=== PATIENT | female | born 1945 | race Caucasian/White ===

== ENCOUNTER 2018-08-22 15:57 | Emergency (ER) | payer OTHER ==
--- NOTE | 2018-08-22 17:39 | RAD REPORT ---
EXAM DESCRIPTION: RAD - Ankle Left 3 View -08/22/2018 5:31 pm CLINICAL HISTORY: Left ankle pain status post injury FINDINGS: No fracture or dislocation is seen. The bones are osteoporotic
--- NOTE | 2018-08-22 17:42 | RAD REPORT ---
EXAM DESCRIPTION: RAD - Foot Left 3 View - 08/22/2018 5:34 pm CLINICAL HISTORY: Left Foot pain FINDINGS: Lucency is present within in the anterior superior aspect of the talus. This could either represent prominent trabecula or a nondisplaced fracture and should be correlated clinically. No dislocation noted Large calcaneal spur is present. Bones are osteoporotic
[2018-08-22] MEDS ORDERED: HYDROCODONE/APAP 7.5/325 MG TAB ONE (18:12)
--- NOTE | 2018-08-22 19:08 | EDPHYS ---
Physician Documentation [facility] Name: Nimo Galan Age: 73 yrs Sex: Female : 1945 Arrival Date: 08/22/2018 Time: 16:00 Bed 25 Private MD: Ramon Mckeon E ED Physician Albert Jarrett HPI: 08/22 16:23 This 73 yrs old Female presents to ER via Carried with complaints of Ankle cp Injury. 16:23 The patient presents with an injury, pain, that is acute, swelling, tenderness. The cp complaints affect the left ankle. Onset: The symptoms/episode began/occurred 5 day(s) ago. Context: resulted from a mis-step by the patient, hole in yard, The patient can fully bear weight on the affected extremity. the patient is able to ambulate, with moderate difficulty. Associated signs and symptoms: Pertinent negatives: calf tenderness, numbness. Historical: - Allergies: 16:11 Sulfa (Sulfonamide Antibiotics); aa5 - PMHx: 16:11 Hypertension; Breast Cancer; aa5 - PSHx: 16:11 Mastectomy, Left; aa5 - Immunization history:: Adult Immunizations up to date. - Social history:: Smoking status: Patient/guardian denies using tobacco. - Ebola Screening: : No symptoms or risks identified at this time. ROS: 16:27 Constitutional: Negative for body aches, chills, fever, poor PO intake. cp 16:27 Neck: Negative for pain with movement, pain at rest, stiffness. 16:27 Cardiovascular: Negative for chest pain, palpitations. 16:27 Respiratory: Negative for cough, shortness of breath, wheezing. 16:27 Abdomen/GI: Negative for abdominal pain, vomiting, diarrhea, constipation. 16:27 Back: Negative for pain at rest, pain with movement. 16:27 MS/extremity: Positive for ecchymosis, pain, swelling, tenderness, of the left ankle and left foot, Negative for deformity. 16:27 Neuro: Negative for numbness. 16:27 All other systems are negative. Exam: 16:35 Constitutional: The patient appears in no acute distress, alert, awake, non-toxic, well cp developed, well nourished. 16:35 Head/Face: Normocephalic, atraumatic. cp 16:35 Eyes: Periorbital structures: appear normal, Conjunctiva: normal, no exudate, no injection, Lids and lashes: appear normal, bilaterally. 16:35 ENT: External ear(s): are unremarkable, Nose: is normal, Mouth: is normal, Posterior pharynx: Airway: no evidence of obstruction, patent. 16:35 Chest/axilla: Inspection: normal. 16:35 Cardiovascular: Rate: normal, Pulses: Pulses are 2+ in left dorsalis pedis artery. 16:35 Respiratory: the patient does not display signs of respiratory distress, Respirations: normal, no use of accessory muscles, no retractions, no splinting, no tachypnea. 16:35 Abdomen/GI: Inspection: abdomen appears normal. 16:35 Back: pain, is absent, ROM is normal. 16:35 Musculoskeletal/extremity: Extremities: grossly normal except: noted in the left ankle and left foot: ecchymosis, pain, swelling, tenderness, Sensation intact. Achilles tendon intact, no pain noted at proximal fibula. 16:35 Skin: cellulitis, is not appreciated, no rash present. Vital Signs: 16:12 BP 126 / 58; Pulse 73; Resp 18 S; Temp 97.9(TE); Pulse Ox 98% on R/A; Weight 113.4 kg aa5 (R); Height 5 ft. 11 in. (180.34 cm) (R); Pain 0/10; 17:18 BP 128 / 56; Pulse 63; Resp 17; Pulse Ox 95% on R/A; tw2 18:21 BP 115 / 71; Pulse 84; Resp 17; Pulse Ox 100% on R/A; tw2 16:12 Body Mass Index 34.87 (113.40 kg, 180.34 cm) aa5 Procedures: 19:10 Splinting: Splint applied to left foot and left ankle using Orthoglass splint, cp posterior short leg and stirrup non-weight bearing. applied by tech. Examined by me, post splint application: neurovascular intact, Patient tolerated well. MDM: 16:17 Patient medically screened. cp 17:00 Differential diagnosis: fracture, sprain, dislocation. cp 19:05 Data reviewed: vital signs, nurses notes, radiologic studies, plain films, and as a cp result, I will discharge patient. 19:05 Test interpretation: by ED physician or midlevel provider: plain radiologic studies. cp Counseling: I had a detailed discussion with the patient and/or guardian regarding: the historical points, exam findings, and any diagnostic results supporting the discharge/admit diagnosis, radiology results, the need for outpatient follow up, for definitive care, a orthopedic surgeon, to return to the emergency department if symptoms worsen or persist or if there are any questions or concerns that arise at home. Response to treatment: the patient's symptoms have markedly improved after treatment, and as a result, I will discharge patient. 08/22 16:26 Order name: XRAY Ankle LEFT 3 view cp 08/22 16:26 Order name: XRAY Foot LEFT 3 View cp 08/22 17:40 Order name: RAD [facility] 08/22 17:43 Order name: RAD [facility] 08/22 17:56 Order name: Crutches; Complete Time: 18:21 cp 08/22 17:56 Order name: Splint: non-wt bearing posterior lower leg and stirrup; Complete Time: 18:21cp Administered Medications: 18:02 Drug: Hydrocodone-Acetaminophen (7.5 mg-325 mg) 1 tabs Route: PO; tw2 18:21 Follow up: Response: No adverse reaction tw2 Disposition: 19:30 Chart complete. cp Disposition: 08/22/18 19:08 Discharged to Home. Impression: Talus Bone fracture left foot. - Condition is Stable. - Discharge Instructions: Foot Pain. - Prescriptions for Ibuprofen 800 mg Oral Tablet - take 1 tablet by ORAL route every 8 hours As needed take with food; 30 tablet. Tylenol- Codeine #3 300-30 mg Oral Tablet - take 2 tablets by ORAL route every 6 hours As needed; 20 tablet. - Medication Reconciliation Form, Thank You Letter, Antibiotic Education, Prescription Opioid Use form. - Follow up: Dwaine Devi MD; When: 2 - 3 days; Reason: left foot fracture. - Problem is new. - Symptoms have improved. Addendum: 08/25/2018 06:45 Co-signature as Attending Physician, Albert Jarrett MD I agree with the assessment and k dr plan of care. Signatures: Dispatcher [employer] Albert Whitt MD MD [facility] Sabra Gramajo RN RN aa5 Marcellus Doan PA PA cp Krystal Younger RN RN tw2 Corrections: (The following items were deleted from the chart) 08/22 19:15 19:08 08/22/2018 19:08 Discharged to Home. Impression: Talus Bone fracture left foot. tw2 Condition is Stable. Forms are Medication Reconciliation Form, Thank You Letter, Antibiotic Education, Prescription Opioid Use. Follow up: Dwaine Devi; When: 2 - 3 days; Reason: left foot fracture. Problem is new. Symptoms have improved. cp 08/23 14:14 08/22 18:10 Splinting: Splint applied to left foot and left ankle using Orthoglass cp splint, non-wt bearing posterior short leg and stirrup type. applied by tech. Examined by me, post splint application: neurovascular intact, Patient tolerated well, cp
--- NOTE | 2018-08-22 19:08 | ER ---
Nurse's Notes [facility] Name: Nimo Galan Age: 73 yrs Sex: Female : 1945 Arrival Date: 08/22/2018 Time: 16:00 Bed 25 Private MD: Ramon Mckeon E Diagnosis: Talus Bone fracture left foot Presentation: 08/22 16:09 Presenting complaint: Patient states: "I stepped on a hole my dog dug on Saturday and aa5 rolled my ankle". Pt c/o left ankle pain. Pt states "my tramadol 50mg is not taking care of the pain". Transition of care: patient was not received from another setting of care. Onset of symptoms was August 2018. Risk Assessment: Do you want to hurt yourself or someone else? Patient reports no desire to harm self or others. Initial Sepsis Screen: Does the patient meet any 2 criteria? No. Patient's initial sepsis screen is negative. Does the patient have a suspected source of infection? No. Patient's initial sepsis screen is negative. Care prior to arrival: None. 16:09 Method Of Arrival: Carried aa5 16:09 Acuity: IGNACIO 4 aa5 Historical: - Allergies: 16:11 Sulfa (Sulfonamide Antibiotics); aa5 - PMHx: 16:11 Hypertension; Breast Cancer; aa5 - PSHx: 16:11 Mastectomy, Left; aa5 - Immunization history:: Adult Immunizations up to date. - Social history:: Smoking status: Patient/guardian denies using tobacco. - Ebola Screening: : No symptoms or risks identified at this time. Screenin:16 Abuse screen: Denies threats or abuse. Nutritional screening: No deficits noted. tw2 Tuberculosis screening: No symptoms or risk factors identified. Fall Risk Secondary diagnosis (15 points) impaired mobility. Assessment: 16:16 General: Appears in no apparent distress. Behavior is calm, cooperative, appropriate tw2 for age. Pain: Complains of pain in left lateral ankle, left Achilles, left medial ankle and anterior aspect of left ankle. Neuro: Level of Consciousness is awake, alert, obeys commands, Oriented to person, place, time, situation. Cardiovascular: Capillary refill < 3 seconds Patient's skin is warm and dry. Respiratory: Airway is patent Respiratory effort is even, unlabored, Respiratory pattern is regular, symmetrical. GI: No signs and/or symptoms were reported involving the gastrointestinal system. : No signs and/or symptoms were reported regarding the genitourinary system. EENT: No signs and/or symptoms were reported regarding the EENT system. Derm: No signs and/or symptoms reported regarding the dermatologic system. Musculoskeletal: Circulation, motion, and sensation intact. Range of motion: limited in left ankle. 17:18 Reassessment: Patient appears in no apparent distress at this time. No changes from tw2 previously documented assessment. Patient and/or family updated on plan of care and expected duration. Pain level reassessed. Patient is alert, oriented x 3, equal unlabored respirations, skin warm/dry/pink. 18:21 Reassessment: Patient appears in no apparent distress at this time. No changes from tw2 previously documented assessment. Patient and/or family updated on plan of care and expected duration. Pain level reassessed. Patient is alert, oriented x 3, equal unlabored respirations, skin warm/dry/pink. 18:47 Reassessment: pt unable to return demonstration safely with crutches, provider notified.tw2 19:15 Reassessment: Patient appears in no apparent distress at this time. No changes from tw2 previously documented assessment. Patient and/or family updated on plan of care and expected duration. Pain level reassessed. Patient is alert, oriented x 3, equal unlabored respirations, skin warm/dry/pink. Vital Signs: 16:12 BP 126 / 58; Pulse 73; Resp 18 S; Temp 97.9(TE); Pulse Ox 98% on R/A; Weight 113.4 kg aa5 (R); Height 5 ft. 11 in. (180.34 cm) (R); Pain 0/10; 17:18 BP 128 / 56; Pulse 63; Resp 17; Pulse Ox 95% on R/A; tw2 18:21 BP 115 / 71; Pulse 84; Resp 17; Pulse Ox 100% on R/A; tw2 16:12 Body Mass Index 34.87 (113.40 kg, 180.34 cm) aa5 ED Course: 16:00 Patient arrived in ED. rg4 16:01 Ramon Mckeon MD is Private Physician. rg4 16:10 Triage completed. aa5 16:12 Arm band placed on. aa5 16:15 Krystal Younger, RN is Primary Nurse. tw2 16:15 Bed in low position. Call light in reach. Pulse ox on. NIBP on. tw2 16:17 Marcellus Doan PA is PHCP. cp 16:17 Albert Jarrett MD is Attending Physician. cp 17:30 X-ray completed. Portable x-ray completed in exam room. Patient tolerated procedure ag1 well. 19:00 Rohan wrap to left ankle Orthoglass splint: Posterior short lleg splint applied on left jp3 leg. stirrup splint applied on left leg. 19:06 Dwaine Devi MD is Referral Physician. cp 19:14 No provider procedures requiring assistance completed. Patient did not have IV access tw2 during this emergency room visit. Administered Medications: 18:02 Drug: Hydrocodone-Acetaminophen (7.5 mg-325 mg) 1 tabs Route: PO; tw2 18:21 Follow up: Response: No adverse reaction tw2 Outcome: 19:08 Discharge ordered by MD. cp 19:14 Discharged to home via wheelchair, with family. tw2 19:14 Condition: stable 19:14 Discharge instructions given to patient, family, Instructed on discharge instructions, follow up and referral plans. no drinking with medication, no driving heavy equipment, medication usage, safety practices, Demonstrated understanding of instructions, follow-up care, splint care, Prescriptions given X 3, prescription for knee walker included as pt failed crutch training 19:15 Patient left the ED. tw2 Signatures: Sabra Gramajo, RN RN aa5 Karin Andres ag1 Marcellus Doan PA PA cp Krystal Younger, RN RN tw2 Fannie iLra 4 Donato Paul jp3
== END 2018-08-22 19:15 | disposition home or self-care (01) ==
LOC: ER 15:57
PROC: 2W3RX1Z Immobilization of Left Lower Leg using Splint (ICD-10-PCS; principal; 2018-08-22)
DX: S92.102A Unspecified fracture of left talus, initial encounter for closed fracture (principal); X58.XXXA Exposure to other specified factors, initial encounter; Y93.01 Activity, walking, marching and hiking; Y92.096 Garden or yard of other non-institutional residence as the place of occurrence of the external cause; I10 Essential (primary) hypertension; Z88.2 Allergy status to sulfonamides; Z85.3 Personal history of malignant neoplasm of breast
CPT/HCPCS: 99284

== ENCOUNTER 2021-12-09 09:51 | Emergency (ER) | payer OTHER ==
--- OUTSIDE RECORDS SUMMARY | 2021-12-09 09:53 | XMS REPORT | Continuity of Care Document ---
:1945 Author Organization [facility] t Address [address] [place] [address] Care Team Providers Name Role Phone Mckeon, E Attending Clinician Unavailable Problems Condition Condition Condition Status Onset Resolution Last Treating Co mments Source Name Details Category Date Date Treatment Clinician Date Pain of Pain of Diagnosis Active Commo n joint of joint of Spirit left ankle left ankle - [facility] and foot and foot [facility] Mild Mild Diagnosis Active Common sprain of sprain of Spir it left left - [facility] ankle, ankle, St subsequent [facility] encounter encounter [facility] Allergies, Adverse Reactions, Alerts Allergy Allergy Status Severity Reaction(s) Onset Inactive Treating Comm ents Source Name Type Date Date Clinician Sulfa Adverse Active Info Not Common Reaction Available Spiri t [facility] Medications Ordered Filled Start Stop Current Ordering Indication Dosage Frequency Signature Comments Components Source Medication Medication Date Date Medication? Clinician (SIG) Name Name Multivitami Multivitami Yes Dwaine not Common n n Devi defined Spirit - [facility] Paroxetine Paroxetine Yes Dwaine not C ommon HCl HCl Devi defined Spirit - [facility] Neurontin Neurontin Yes Dwaine TAKE ONE Common Devi CAPSULE BY Spirit MOUTH TWO - [facility] Zofran Zofran Yes Dwaine 1-2 po q 4 Com mon Devi hrs for Spirit nausea - [facility] Benazepril Benazepril Yes Dwaine not C ommon HCl HCl Devi defined Spirit [facility] Calcium Calcium Yes Dwaine not Common Devi defined Spirit [facility] Procedures This patient has no known procedures. Encounters Start End Encounter Admission Attending Care Care Encounter Source Date/Time Date/Time Type Type Clinicians Facility Department ID 2021-10-09 Outpatient Mckeon, STLMLC STLMLC [id number] Common 11:00:02 Ramon [address] Spirit - [facility] 2018-09-24 2018-09-24 Outpatient Ayesha Francisco [id number] Common 15:00:00 15:00:00 t Bone Bone and Spiri t and Joint [facility] - [facility] 2018-08-28 2018-08-28 Outpatient Ayesha Francisco [id number] Common 08:30:00 08:30:00 t Bone Bone and Spiri t and Joint Joint - [facility] Results This patient has no known results.
[2021-12-09] MEDS ORDERED: METHYLPREDNISOLONE 125 MG INJ ONE (10:58)
[2021-12-09] MEDS ORDERED: KETOROLAC 30 MG/ML INJ ONE (10:59)
[2021-12-09] MEDS ORDERED: HYDROCODONE/APAP 10/325 TAB ONE (10:59)
--- NOTE | 2021-12-09 11:48 | ER ---
Nurse's Notes [facility] Name: Sudha Galan Age: 76 yrs Sex: Female : 1945 Arrival Date: 12/09/2021 Time: 09:54 Bed 9 Private MD: Ramon Mckeon E; Vega, Charles Diagnosis: Pain in left knee;Other specified arthritis, left knee Presentation: 12/09 10:01 Chief complaint: Patient states: "I got Cortizone shot in my left knee about 2.5 months jd3 ago and everything was doing well, but here recently my left knee has been swelling and causing all sorts of pain.". Coronavirus screen: At this time, the client does not indicate any symptoms associated with coronavirus-19. Ebola Screen: No symptoms or risks identified at this time. Initial Sepsis Screen: Does the patient meet any 2 criteria? No. Patient's initial sepsis screen is negative. Does the patient have a suspected source of infection? No. Patient's initial sepsis screen is negative. Risk Assessment: Do you want to hurt yourself or someone else? Patient reports no desire to harm self or others. Onset of symptoms was December 09, 2021. 10:01 Method Of Arrival: Ambulatory jd3 10:01 Acuity: IGNACIO 3 jd3 Historical: - Allergies: 10:02 Sulfa (Sulfonamide Antibiotics); jd3 - PMHx: 10:02 breast cancer; Hypertension; Arthritis; jd3 - Immunization history:: Adult Immunizations up to date, Client reports receiving the 2nd dose of the Covid vaccine. - Social history:: Smoking status: Patient/guardian denies using tobacco, but has a distant history of tobacco abuse. Screenin:14 Abuse screen: Denies threats or abuse. Denies injuries from another. Nutritional iw screening: No deficits noted. Tuberculosis screening: No symptoms or risk factors identified. Fall Risk None identified. Assessment: 11:13 General: Appears in no apparent distress. Behavior is calm, cooperative. Pain:. iw 11:13 Pain: Complains of pain in left knee. Neuro: Level of Consciousness is awake, alert, iw obeys commands, Oriented to person, place, time, situation, Moves all extremities. Cardiovascular: Patient's skin is warm and dry. Respiratory: Respiratory effort is even, unlabored, Respiratory pattern is regular, symmetrical. Derm: Skin is intact, is healthy with good turgor. Musculoskeletal: Range of motion: limited in left knee. Vital Signs: 10:03 BP 138 / 72; Pulse 64; Resp 18 S; Temp 98.4(TE); Pulse Ox 100% on R/A; Weight 111.58 kg jd3 (R); Height 5 ft. 11 in. (180.34 cm) (R); Pain 10/10; 10:03 Body Mass Index 34.31 (111.58 kg, 180.34 cm) jd3 ED Course: 09:54 Patient arrived in ED. as 09:54 Kal Lomeli MD is Private Physician. as 09:55 Ramon Mckeon MD is Private Physician. as 10:01 Albert Jarrett MD is Attending Physician. kdr 10:02 Triage completed. jd3 10:04 Arm band placed on. jd3 10:20 Telma Pelayo, RN is Primary Nurse. iw 11:14 No provider procedures requiring assistance completed. Patient did not have IV access iw during this emergency room visit. 11:46 Kal Lomeli MD is Referral Physician. kdr Administered Medications: 11:11 Drug: SOLU-Medrol (methylPrednisoLONE) 125 mg Route: IVP; Site: right antecubital; iw 14:50 Follow up: Response: No adverse reaction iw 11:12 Drug: Ketorolac 15 mg Route: IVP; Site: right antecubital; iw 12:00 Follow up: Response: No adverse reaction iw 11:12 Drug: [place] (HYDROcodone-acetaminophen) 10 mg-325 mg 1 tabs Route: PO; iw 12:00 Follow up: Response: No adverse reaction iw Outcome: 11:47 Discharge ordered by . kdr 11:56 Patient left the ED. iw Signatures: Albert Jarrett MD MD kdr Emily Ramirez as Telma Pelayo RN RN iw Martinez Kendrick RN RN jd3 Corrections: (The following items were deleted from the chart) 10:05 10:03 Pulse 64bpm; Resp 18bpm; Spontaneous; Pulse Ox 100% RA; Temp 98.4F Temporal; jd3 111.58 kg Reported; Height 5 ft. 11 in. Reported; BMI: 34.3; Pain 10/10; jd3
--- NOTE | 2021-12-09 11:48 | EDPHYS ---
Physician Documentation [facility] Name: Sudha Galan Age: 76 yrs Sex: Female : 1945 Arrival Date: 12/09/2021 Time: 09:54 Bed 9 Private MD: Ramon Mckeon E; Vega, Charles Physician Albert Jarrett HPI: 12/09 12:05 This 76 yrs old Female presents to ER via Ambulatory with complaints of Knee Pain - kdr swelling. 12:05 The patient presents with pain, that is acute. The complaints affect the right knee. kdr Context: The problem was sustained at home, resulted from an unknown cause, the patient can partially bear weight, the patient is able to ambulate, uses a walker, Problem is a result from a previous injury: Yes. Onset: The symptoms/episode began/occurred gradually, 1 week(s) ago. Modifying factors: The symptoms are alleviated by nothing. the symptoms are aggravated by movement, weight bearing, bending knee. Associated signs and symptoms: The patient has no apparent associated signs or symptoms. Treatment prior to arrival includes: no previous treatment. Severity of symptoms: At their worst the symptoms were severe, incapacitating, in the emergency department the symptoms have improved. The patient has experienced similar episodes in the past, a few times. Patient received a cortisone injection in her left knee about 2 and half months ago with from Dr. Lomeli. Since then she has been doing well until recently when her left knee began to swell and give her intermittent sharp pain. These are the same symptoms that she was having prior to her initial injection. She attempted to contact Dr. Lomeli's office but they were not able to schedule her for more than a month so she presented to the ED. She otherwise has no new complaint. Her symptoms are significant but not life-threatening. She is otherwise stable and without acute illness or injury. Historical: - Allergies: 10:02 Sulfa (Sulfonamide Antibiotics); jd3 - PMHx: 10:02 breast cancer; Hypertension; Arthritis; jd3 - Immunization history:: Adult Immunizations up to date, Client reports receiving the 2nd dose of the Covid vaccine. - Social history:: Smoking status: Patient/guardian denies using tobacco, but has a distant history of tobacco abuse. ROS: 12:05 Constitutional: Negative for fever, chills, and weight loss, Eyes: Negative for injury, kdr pain, redness, and discharge. 12:05 MS/extremity: Positive for decreased range of motion, pain, swelling, tenderness, of the left knee. Exam: 12:05 Constitutional: This is a well developed, well nourished patient who is awake, alert, kdr and in no acute distress. 12:05 Musculoskeletal/extremity: ROM: limited active range of motion, limited passive range of motion, Circulation is intact in all extremities. Sensation intact. Vital Signs: 10:03 BP 138 / 72; Pulse 64; Resp 18 S; Temp 98.4(TE); Pulse Ox 100% on R/A; Weight 111.58 kg jd3 (R); Height 5 ft. 11 in. (180.34 cm) (R); Pain 10/10; 10:03 Body Mass Index 34.31 (111.58 kg, 180.34 cm) jd3 MDM: 11:47 Patient medically screened. kdr 12:05 Data reviewed: vital signs, nurses notes, lab test result(s), radiologic studies. kdr Counseling: I had a detailed discussion with the patient and/or guardian regarding: the historical points, exam findings, and any diagnostic results supporting the discharge/admit diagnosis, lab results, radiology results, the need for outpatient follow up. Administered Medications: 11:11 Drug: SOLU-Medrol (methylPrednisoLONE) 125 mg Route: IVP; Site: right antecubital; iw 14:50 Follow up: Response: No adverse reaction iw 11:12 Drug: Ketorolac 15 mg Route: IVP; Site: right antecubital; iw 12:00 Follow up: Response: No adverse reaction iw 11:12 Drug: [place] (HYDROcodone-acetaminophen) 10 mg-325 mg 1 tabs Route: PO; iw 12:00 Follow up: Response: No adverse reaction iw Disposition Summary: 12/09/21 11:47 Discharge Ordered Location: Home kdr Problem: an acute exacerbation kdr Symptoms: have improved kdr Condition: Stable kdr Diagnosis - Pain in left knee kdr - Other specified arthritis, left knee kdr Followup: kdr - With: Kal Lomeli MD - When: 2 - 3 days - Reason: If symptoms return, Further diagnostic work-up, Recheck today's complaints, Continuance of care, Re-evaluation by your physician Discharge Instructions: - Discharge Summary Sheet kdr - Joint Pain kdr - Arthritis kdr - Musculoskeletal Pain kdr - Acute Knee Pain, Adult kdr Forms: - Medication Reconciliation Form kdr - Thank You Letter kdr - Prescription Opioid Use kdr Prescriptions: - Ibuprofen 600 mg Oral Tablet - take 1 tablet by ORAL route every 6 hours As needed take with food; 30 tablet; kdr Refills: 0, Product Selection Permitted - Tramadol 50 mg Oral Tablet - take 1 tablet by ORAL route At bedtime As needed as needed; 12 tablet; Refills: kdr 0, Product Selection Permitted - Medrol (Martinez) 4 mg Oral Tablets, Dose Pack - take 1 tablet by ORAL route as directed - follow package instructions; 1 kdr packet; Refills: 0, Product Selection Permitted Signatures: Albert Jarrett MD MD kdr Telma Pelayo RN RN iw Martinez Kendrick RN RN jd3
[2021-12-09 12:00] VITALS: BP 138/72; TEMP 98.4; O2SAT 100
== END 2021-12-09 11:56 | disposition home or self-care (01) ==
LOC: ER 09:51
DX: M17.12 Unilateral primary osteoarthritis, left knee (principal); I10 Essential (primary) hypertension; Z88.2 Allergy status to sulfonamides; Z85.3 Personal history of malignant neoplasm of breast
CPT/HCPCS: 96375; 96374; 99282; J2930

== ENCOUNTER 2022-05-29 20:27 | Inpatient (IN) | payer OTHER ==
--- OUTSIDE RECORDS SUMMARY | 2022-05-29 20:30 | XMS REPORT | Continuity of Care Document ---
:1945 Author Organization [facility] t Address [address] [place] [address] Care Team Providers Name Role Phone Pcp, Patient Does Not Have A Primary Care Physician [id number] Ramon Mckeon Attending Clinician Unavailable Chang Solorzano DO Attending Clinician CHANG SOLORZANO Attending Clinician Unavailable Payers Payer Name Policy Type Policy Number Effective Date Expiration Date S [facility] [id number] 2022 (MEDICARE 00:00:00 REPLACEMENT HMO) Problems Condition Condition Condition Status Onset Resolution Last Treating Co mments Source Name Details Category Date Date Treatment Clinician Date [id number] Pain of Problem Commo n joint of Spirit left ankle - CHI and foot [facility] [id number] Primary Problem Comm on osteoarthr Spirit itis of - CHI left knee [facility] [id number] Mild Problem Common sprain of Spirit left - CHI ankle, [facility] Allergies, Adverse Reactions, Alerts Allergy Allergy Status Severity Reaction(s) Onset Inactive Treating Comm ents Source Name Type Date Date Clinician Sulfur Propensi Active Rash 2021-07 Univers ty to 07-29 ity of adverse 00:00: [place] reaction Medical s Branch SULFUR DRUG Active Rash 2021-07 Univers INGREDI 07-29 ity of 00:00: [place] 00 Medical Branch Social History Social Habit Start Date Stop Date Quantity Comments Source History of Common Spirit - Tobacco Use [facility] Exposure to 2022-05-19 2022-05-29 Unable to assess Univers ity of SARS-CoV-2 00:00:00 14:21:00 [facility] (event) Branch Sex Ass[birth year] Universit y of 00:00:00 00:00:00 [facility] Smoking Status Start Date Stop Date Source Tobacco [place] consumption [place] Medical Bran ch Former Smoker 2022-05-09 00:00:00 2022-05-09 Common Spiri t - [facility] 00:00:00 [facility] nter Medications Ordered Filled Start Stop Current Ordering Indication Dosage Frequency Signature Comments Components Source Medication Medication Date Date Medication? Clinician (SIG) Name Name HYDROcodone 2021-07 No 1{tbl} 1 [facility] Oral, ity of hen (NORCO) 22:45: 21:55 [place] 10[place]325 mg 00 :00 dose, On Medica l tablet 1 [facility] tablet 05/29/22 at 1645, Routine ondansetron 2021-07- No 4mg 4 mg, Univ ers (ZOFRAN-ODT 07-29 Oral, ity of ) 22:30: 21:55 ONCE, 1 [place] disintegrat 00 :00 dose, On Medi ronald ing tablet Sat [place] 4 mg 05/29/22 at 1630, Routine FENTanyl PF 2021-07- No 75ug 75 mcg, Un flip (SUBLIMAZE 07-29 Slow IV ity o f (PF)) 21:45: 20:59 Push, [place] injection 00 :00 ONCE, 1 Medical 75 mcg dose, On Branch 05/29/22 at 1545, Routine naproxen 2021-07 Yes [id number] 550mg Take 1 Un flip sodium 550 07-29 tablet by ity of mg tablet 00:[place] the Medical morning Branch and 1 tablet in the evening. Take with meals. methylPREDN 2021-07 Yes [id number] Take by [facility] ISolone 4 07-29 mouth ity of mg tablets 00:00: SEE-INSTRU [place] 00 CTIONS. Medical follow Branch package directions HYDROcodone 2021-07- Yes 4647 .5{tbl} Take 0.5-1 Univers -acetaminop 07-29 tablets by i ty of hen (NORCO) 00:00: 05:59 [place] 10-325 mg 00 :00 every 6 Medical tablet (six) Branch hours as needed for Pain (scale 7-10) for up to 7 days. Indication s: acute pain methocarbam 2021-07- Yes [id number] 500mg Take 1 Univers oL 500 mg 07-29 tablet by ity of tablet 00:00: 05:59 mouth in [place] 00 :00 the Medical morning Branch and 1 tablet at noon and 1 tablet in the evening. Do all this for 5 days. Bupivicaine Bupivicaine 2021-07 No 2.5mg Common [place] Thornton 1-07 Spirit 00:00: - CHI [facility] Kenalog Kenalog 2021-07 No 40mg Common (Triamcinol (Triamcinol 1-07 S pirit one) one) 00:00: - CHI [facility] Bupivicaine Bupivicaine No 2.5mg Common Thornton Thornton 4-12 Spirit 00:00: - CHI [facility] Kenalog Kenalog No 40mg Common (Triamcinol (Triamcinol 4-12 S pirit one) one) 00:00: - CHI [facility] Bupivicaine Bupivicaine No 2.5mg Common Thornton Thornton 4-12 Spirit 00:00: - CHI [facility] Kenalog Kenalog No 40mg Common (Triamcinol (Triamcinol 4-12 S pirit one) one) 00:00: - CHI 00 [facility] Benazepril Benazepril Yes Dwaine not C ommon HCl HCl Marito defined Spirit - CHI [facility] Calcium Calcium Yes Dwaine not Common Marito defined Spirit - [facility] Multivitami Multivitami Yes Dwaine not Common n n Devi defined Spirit - CHI [facility] Paroxetine Paroxetine Yes Dwaine not C ommon HCl HCl Devi defined Spirit - CHI [facility] Neurontin Neurontin Yes Dwaine TAKE ONE Common Devi CAPSULE BY Spirit MOUTH TWO [facility] Zofran Zofran Yes Dwaine 1-2 po q 4 Com mon Devi hrs for Spirit nausea - CHI [facility] Vitamin D2 Vitamin D2 No Vitamin D2 Lisinopril Lisinopril No Lisinopril Oxybutynin Oxybutynin No Oxybutynin PARoxetine PARoxetine No PARoxetine HCl HCl HCl prednisoLON prednisoLON No prednisoLO E Acetate E Acetate NE Acetate Oxybutynin Oxybutynin No Oxybutynin Chloride ER Chloride ER Chloride ER Diclofenac Diclofenac No Diclofenac Sodium Sodium Sodium Vitamin D Vitamin D No Vitamin D (Ergocalcif (Ergocalcif (Ergocalci clemente) clemente) ferol) Ofloxacin Ofloxacin No Ofloxacin Vitamin D2 Vitamin D2 No Vitamin D2 Lisinopril Lisinopril No Lisinopril Amoxicillin Amoxicillin No Amoxicilli n Tolterodine Tolterodine No Tolterodin Tartrate ER Tartrate ER e Tartrate ER Oxybutynin Oxybutynin No Oxybutynin PARoxetine PARoxetine No PARoxetine HCl HCl HCl Lisinopril- Lisinopril- No Lisinopril hydroCHLORO hydroCHLORO -hydroCHLO thiazide thiazide ROthiazide Vital Signs Vital Name Observation Time Observation Value Comments Source Systolic blood 2022-05-29 22:00:00 128 mm[Hg] Univer sity of pressure [facility] Diastolic blood 2022-05-29 22:00:00 67 mm[Hg] [facility] Heart rate 2022-05-29 22:00:00 65 /min [facility] Oxygen saturation in 2022-05-29 22:00:00 98 /min [facility] blood by [facility] Pulse oximetry Branch Body temperature 2022-05-29 21:51:32 36.67 Zoe [facility] Respiratory rate 2022-05-29 21:51:32 18 /min [facility] Body height 2022-05-29 20:19:00 180.3 cm [facility] Body weight 2022-05-29 20:19:00 111.585 kg [facility] BMI 2022-05-29 20:19:00 34.31 kg/m2 [facility] height 2022-05-07 09:30:00 71 [in_i] [facility] weight 2022-05-07 09:30:00 238 [lb_av] Common S [facility] temperature 2022-05-07 09:30:00 98.4 [degF] Common S [facility] bmi 2022-05-07 09:30:00 33.19 kg/m2 [facility] blood pressure 2022-05-07 09:30:00 134 mm[Hg] Common Spirit - systolic [facility] blood pressure 2022-05-07 09:30:00 78 mm[Hg] Common Spirit - diastolic [facility] Procedures Procedure Date / Time Performed Performing Clinician [facility] e CT CERVICAL SPINE WO 2022-05-29 21:41:00 Chang Solorzano [facility] CONTRAST [facility] CT HEAD WO CONTRAST 2022-05-29 21:41:00 Chang Solorzano [facility] XR SHOULDER <2 VW 2022-05-29 21:34:58 Chang Solorzano [facility] LEFT [facility] XR CHEST 1 VW 2022-05-29 21:25:58 Chang Solorzano [facility] o [facility] [place] [facility] XR HIPS 3 VW RIGHT 2022-05-29 21:25:58 Chang Solorzano [facility] XR SHOULDER 2+ VW 2022-05-29 21:25:58 Chang Solorzano [facility] Plan of Care Planned Activity Planned Date Details Comments Source Encounters Start End Encounter Admission Attending Care Care Encounter Source Date/Time Date/Time Type Type Clinicians Facility Department ID 2022-04-20 Outpatient Mckeon, STLMLC STLMLC [id number] Common 09:51:01 Ramon [facility] 2021-10-09 Outpatient Mckeon, STLMLC STLMLC [id number] Common 11:00:02 Ramon [facility] 2022-05-29 2022-05-29 Emergency [facility] [id number] Univers 14:06:00 17:33:00 Chang SANTANA [id number] i Leonora [id number] [facility] [id number] [place] [id number] Branch 2022-05-29 2022-05-29 Emergency X [facility] ERT [id number] Univers 14:06:00 17:33:00 CHANG [facility] 2022-05-07 2022-05-07 OFFICE STLMLC STLMLC [id number] Co mmon 00:00:00 00:00:00 VISIT Bear [facility] PT - CHI LEVEL 4 [facility] 2022-04-17 2022-04-17 Outpatient DMG DMG [id number] [facility] 00:00:00 00:00:00 [id number] Medica l [facility] 2021-12-06 2021-12-06 (TEL) STLMLC STLMLC [id number] Co mmon 00:00:00 00:00:00 Spirit - CHI [facility] 2018-09-24 2018-09-24 [id number] Common 15:00:00 15:00:00 t [facility] Joint - [facility] 2018-08-28 2018-08-28 [id number] Common 08:30:00 08:30:00 t Bone Bone [facility] Spiri t and Joint Joint - [facility] Results This patient has no known results.
[2022-05-29] MEDS ORDERED: HYDROMORPHONE HCL 1 MG/ML INJ ONE (21:29)
[2022-05-29] MEDS ORDERED: ONDANSETRON 4 MG/2 ML VIAL ONE (21:29)
[2022-05-29] MEDS ORDERED: KETOROLAC 30 MG/ML INJ ONE (21:29)
[2022-05-29] MEDS ORDERED: NA CHLORIDE 0.9% 500 ML ONE (21:30)
[2022-05-29 21:50] LABS: Absolute Lymphocytes (CBC) 1.6 K/uL (0.7-4.9); Hematocrit 32.6 % (36.0-45.0); Lymphocytes % 14.5 % (15.3-44.8); MPV 8.6 fL (7.6-11.3); RBC Red Blood Cell Count 4.08 M/uL (3.86-4.86)
[2022-05-29 22:10] LABS: Bilirubin Total 0.7 mg/dL (0.2-1.0); Potassium 4.3 mmol/L (3.5-5.1); Protein, Total 7.1 g/dL (6.4-8.2)
--- NOTE | 2022-05-29 22:36 | RAD REPORT ---
EXAM DESCRIPTION: RAD - Clavicle Left - 05/29/2022 10:23 pm CLINICAL HISTORY: PAIN COMPARISON: No comparisons FINDINGS: Mildly angulated fracture mid shaft of the left clavicle is present.
--- NOTE | 2022-05-29 22:36 | RAD REPORT ---
EXAM DESCRIPTION: RAD - Chest Single View - 05/29/2022 10:23 pm CLINICAL HISTORY: TRAUMA Chest pain. COMPARISON: Abdomen Exam Limited dated 07/24/2021No comparisons FINDINGS: Portable technique limits examination quality. Mild pulmonary edema suspected. The heart is mildly enlarged in size. Left clavicle fracture suspecte d.
--- NOTE | 2022-05-29 22:37 | RAD REPORT ---
EXAM DESCRIPTION: RAD - Humerus Right - 05/29/2022 10:23 pm CLINICAL HISTORY: PAIN COMPARISON: No comparisons FINDINGS: Mildly angulated fracture of the proximal right humeral neck is seen. No dislocation.
--- NOTE | 2022-05-29 22:37 | RAD REPORT ---
EXAM DESCRIPTION: RAD - Humerus Left - 05/29/2022 10:23 pm CLINICAL HISTORY: PAIN COMPARISON: Humerus Right dated 05/29/2022 FINDINGS: No fracture or dislocation seen.
--- NOTE | 2022-05-29 22:45 | ER ---
Nurse's Notes [facility] Name: Sudha Galan Age: 77 yrs Sex: Female : 1945 Arrival Date: 05/29/2022 Time: 20:28 Bed 27 Private MD: Diagnosis: Fall on same level, unspecified;Displaced fracture of shaft of left clavicle;Fracture of upper end of humerus-SURGICAL NECK, MILD DISPLACEMENT;Contusion of left knee;Contusion of right knee-NON AMBULATORY;Cardiomegaly Presentation: 05/29 20:58 Chief complaint: Patient states: "I fell at 11 this morning. I was already seen at [address] [place] and they diagnosed me with a left broken clavicle and right humerus." Family reports " They discharged us but we were not able to get her into the house. She cannot go home safely.". Care prior to arrival: Sling. Mechanism of Injury: Fall from standing position. Trauma event details: Injury occurred in the [facility], Injury occurred: at home. Injury occurred: May 29, 2022 Injury occurred at: 11:00. 20:58 Acuity: IGNACIO 3 tw5 20:58 Method Of Arrival: Wheelchair tw5 21:02 Coronavirus screen: Vaccine status: Patient reports receiving the 2nd dose of the covid tw5 vaccine. Moderna. Ebola Screen: Patient negative for fever greater than or equal to 101.5 degrees Fahrenheit, and additional compatible Ebola Virus Disease symptoms Patient denies exposure to infectious person. Patient denies travel to an Ebola-affected area in the 21 days before illness onset. Initial Sepsis Screen: Does the patient meet any 2 criteria? No. Patient's initial sepsis screen is negative. Does the patient have a suspected source of infection? No. Patient's initial sepsis screen is negative. Risk Assessment: Do you want to hurt yourself or someone else? Patient reports no desire to harm self or others. Onset of symptoms was May 29, 2022 at 11:00. Historical: - Allergies: 21:03 Sulfa (Sulfonamide Antibiotics); tw5 - PMHx: 21:03 Arthritis; breast cancer; Hypertension; tw5 - Immunization history: Last tetanus immunization: unknown. - Social history:: Smoking status: Patient denies any tobacco usage or history of. Screenin:10 Abuse screen: Denies threats or abuse. Nutritional screening: No deficits noted. pf1 Tuberculosis screening: No symptoms or risk factors identified. 21:10 Fall Risk Fall in past 12 months (25 points). IV access (20 points). pf1 Primary Survey: 20:58 NO uncontrolled hemorrhage observed. A: The client is awake and alert. The airway is tw5 patent. Breathing/Chest: Spontaneous respiratory effort, equal unlabored respirations, breath sounds clear bilaterally, regular pattern, symmetrical chest rise and fall. Circulation: No external hemorrhage present. Regular and strong central pulse, skin warm/dry/normal color. Disability Pupils are equal, round, reactive to light and accommodation. Exposure/Environment: All clothing and personal items were removed. Forensic evidence collection is not deemed to be indicated at this time. Items placed in patient belonging bag. There is no evidence of uncontrolled external bleeding. Reassessment Alertness and Airway: Awake and alert. The airway is patent. Breathing: Spontaneous respiratory effort, equal unlabored respirations, breath sounds clear bilaterally, regular pattern with symmetrical chest rise and fall. Circulation: No external hemorrhage noted. Regular and strong central pulse, skin warm/dry/normal color. Disability: Pupils. Secondary Survey: 20:58 Musculoskeletal: Reports pain in left clavicle and right arm. tw5 Assessment: 20:58 General: Appears uncomfortable, Behavior is calm, cooperative, appropriate for age. tw5 Pain: Complains of pain in left clavicle and right arm Pain currently is 10 out of 10 on a pain scale. 21:10 General: Appears in no apparent distress. uncomfortable, well groomed, well developed, pf1 Behavior is anxious. Pain: Complains of pain in left knee and right upper arm and left clavicle Pain currently is 10 out of 10 on a pain scale. Neuro: No deficits noted. Cardiovascular: No deficits noted. Respiratory: No deficits noted. GI: No deficits noted. : No deficits noted. EENT: No deficits noted. Derm: Bruising that is on left clavicle Patient has an arm sling to left arm. Patient stated was treated for fall today at [facility] and was diagnosed with Left clavicle fx and right humerus fx per image result. Patient stated fell at home at 1100 this AM. Patient stated she tripped over her rolled up rug while walking to her craft room. Musculoskeletal: Circulation, motion, and sensation intact. Capillary refill < 3 seconds, Bony deformity noted of left clavicle Swelling present in left clavicle. Injury Description: Abrasion sustained to Patient has bruising noted to left knee and left upper arm abrasion and left clavicle. Vital Signs: 21:02 BP 146 / 52; Pulse 69; Resp 18; Temp 98.6; Pulse Ox 99% ; Weight 111.58 kg; Height 5 tw5 ft. 11 in. (180.34 cm); Pain 10/10; 23:28 BP 156 / 59; Pulse 60; Resp 18 S; Pulse Ox 96% on R/A; as6 21:02 Body Mass Index 34.31 (111.58 kg, 180.34 cm) tw5 [place] Coma Score: 20:58 Eye Response: spontaneous(4). Verbal Response: oriented(5). Motor Response: obeys tw5 commands(6). Total: 15. Trauma Score (Adult): 20:58 Eye Response: spontaneous(1); Verbal Response: oriented(1); Motor Response: obeys tw5 commands(2); Systolic BP: > 89 mm Hg(4); Respiratory Rate: 10 to 29 per min(4); Cayla Score: 15; Trauma Score: 12 ED Course: 20:28 Patient arrived in ED. ja2 21:01 Triage completed. tw5 21:03 Arm band placed on Patient placed. tw5 21:10 Tiburcio Dwyer, GUSTAVO is Primary Nurse. as6 21:20 Marcellus Zimmerman MD is Attending Physician. maurisio 21:25 Inserted saline lock: 22 gauge in right antecubital area, using aseptic technique. pf1 Blood collected. 22:24 Humerus Right XRAY In Process Unspecified. EDMS 22:24 Clavicle Left XRAY In Process Unspecified. EDMS 22:24 Humerus Left XRAY In Process Unspecified. EDMS 22:24 Chest Single View XRAY In Process Unspecified. EDMS 22:43 Akash Ho MD is Hospitalizing Provider. maurisio 23:27 SARS RAPID Sent. as6 Administered Medications: 21:35 Drug: NS 0.9% 500 ml Route: IV; Rate: bolus; Site: right antecubital; pf1 22:30 Follow up: Response: No adverse reaction pf1 21:35 Drug: Ketorolac 30 mg Route: IVP; Site: right antecubital; pf1 22:30 Follow up: Response: No adverse reaction; Pain is decreased pf1 21:35 Drug: Dilaudid (HYDROmorphone) 1 mg Route: IVP; Site: right antecubital; pf1 22:30 Follow up: Response: No adverse reaction; Pain is decreased pf1 21:35 Drug: Zofran (Ondansetron) 4 mg Route: IVP; Site: right antecubital; pf1 22:30 Follow up: Response: No adverse reaction pf1 23:05 Not Given (Duplicate Order): fentaNYL Patch (50 mcg/hr) 1 patches Transdermal once maurisio 23:27 Drug: fentaNYL Patch (25 mcg/hr) 1 patches Route: Transdermal; Site: affected area; as6 Intake: 20:58 PO: 0ml; Total: 0ml. tw5 Output: 20:58 Urine: 0ml; Total: 0ml. tw5 Outcome: 22:44 Decision to Hospitalize by Provider. [facility] 05/30 11:31 Patient left the ED. ap3 Signatures: Dispatcher [employer] EDMarcellus Oro MD MD cha Prokisch, Amanda RN RN ap3 Violette vAery Tiffany tw5 Tiburcio Dwyer RN RN as6 Andree bee RN RN pf1
--- NOTE | 2022-05-29 22:45 | EDPHYS ---
Physician Documentation [facility] Name: Sudha Galan Age: 77 yrs Sex: Female : 1945 Arrival Date: 05/29/2022 Time: 20:28 Bed 27 Private MD: ED Physician Marcellus Zimmerman HPI: 05/29 21:24 This 77 yrs old Female presents to ER via Wheelchair with complaints of Fall maurisio Injury. 21:24 Details of fall: The patient fell from an upright position, while walking. Onset: The maurisio symptoms/episode began/occurred today. Associated injuries: The patient sustained chest, right arm and left arm, contusion, decreased range of motion. Severity of symptoms: At their worst the symptoms were moderate, in the emergency department the symptoms are unchanged. The patient has not experienced similar symptoms in the past. Historical: - Allergies: 21:03 Sulfa (Sulfonamide Antibiotics); tw5 - PMHx: 21:03 Arthritis; breast cancer; Hypertension; tw5 - Immunization history: Last tetanus immunization: unknown. - Social history:: Smoking status: Patient denies any tobacco usage or history of. ROS: 21:25 Constitutional: Negative for fever, chills, and weight loss, Eyes: Negative for injury, maurisio pain, redness, and discharge, ENT: Negative for injury, pain, and discharge, Neck: Negative for injury, pain, and swelling, Cardiovascular: Negative for chest pain, palpitations, and edema, Respiratory: Negative for shortness of breath, cough, wheezing, and pleuritic chest pain, Abdomen/GI: Negative for abdominal pain, nausea, vomiting, diarrhea, and constipation, Back: Negative for injury and pain, : Negative for injury, bleeding, discharge, and swelling, Skin: Negative for injury, rash, and discoloration, Neuro: Negative for headache, weakness, numbness, tingling, and seizure, Psych: Negative for depression, anxiety, suicide ideation, homicidal ideation, and hallucinations, Allergy/Immunology: Negative for hives, rash, and allergies, Endocrine: Negative for neck swelling, polydipsia, polyuria, polyphagia, and marked weight changes, Hematologic/Lymphatic: Negative for swollen nodes, abnormal bleeding, and unusual bruising. 21:25 MS/extremity: Positive for decreased range of motion, pain, swelling, tenderness, of the chest, right arm and left arm. Exam: 21:25 Constitutional: This is a well developed, well nourished patient who is awake, alert, maurisio and in no acute distress. Head/Face: Normocephalic, atraumatic. Eyes: Pupils equal round and reactive to light, extra-ocular motions intact. Lids and lashes normal. Conjunctiva and sclera are non-icteric and not injected. Cornea within normal limits. Periorbital areas with no swelling, redness, or edema. ENT: Nares patent. No nasal discharge, no septal abnormalities noted. Tympanic membranes are normal and external auditory canals are clear. Oropharynx with no redness, swelling, or masses, exudates, or evidence of obstruction, uvula midline. Mucous membranes moist. Neck: Trachea midline, no thyromegaly or masses palpated, and no cervical lymphadenopathy. Supple, full range of motion without nuchal rigidity, or vertebral point tenderness. No Meningismus. Cardiovascular: Regular rate and rhythm with a normal S1 and S2. No gallops, murmurs, or rubs. Normal PMI, no JVD. No pulse deficits. Respiratory: Lungs have equal breath sounds bilaterally, clear to auscultation and percussion. No rales, rhonchi or wheezes noted. No increased work of breathing, no retractions or nasal flaring. Abdomen/GI: Soft, non-tender, with normal bowel sounds. No distension or tympany. No guarding or rebound. No evidence of tenderness throughout. Back: No spinal tenderness. No costovertebral tenderness. Full range of motion. Female : Normal external genitalia. Skin: Warm, dry with normal turgor. Normal color with no rashes, no lesions, and no evidence of cellulitis. Neuro: Awake and alert, GCS 15, oriented to person, place, time, and situation. Cranial nerves II-XII grossly intact. Motor strength 5/5 in all extremities. Sensory grossly intact. Cerebellar exam normal. Normal gait. Psych: Awake, alert, with orientation to person, place and time. Behavior, mood, and affect are within normal limits. 21:25 Chest/axilla: Inspection: deformity, of the left clavicle 21:25 Musculoskeletal/extremity: ROM: limited active range of motion due to pain, limited passive range of motion due to pain, in the right arm and left arm, Circulation is intact in all extremities. Sensation intact. Compartment Syndrome exam of affected extremity: is normal. 23:25 ECG was reviewed by the Attending Physician. [facility] Vital Signs: 21:02 BP 146 / 52; Pulse 69; Resp 18; Temp 98.6; Pulse Ox 99% ; Weight 111.58 kg; Height 5 tw5 ft. 11 in. (180.34 cm); Pain 10/10; 23:28 BP 156 / 59; Pulse 60; Resp 18 S; Pulse Ox 96% on R/A; as6 21:02 Body Mass Index 34.31 (111.58 kg, 180.34 cm) tw5 Cayla Coma Score: 20:58 Eye Response: spontaneous(4). Verbal Response: oriented(5). Motor Response: obeys tw5 commands(6). Total: 15. Trauma Score (Adult): 20:58 Eye Response: spontaneous(1); Verbal Response: oriented(1); Motor Response: obeys tw5 commands(2); Systolic BP: > 89 mm Hg(4); Respiratory Rate: 10 to 29 per min(4); Cayla Score: 15; Trauma Score: 12 MDM: 21:21 Patient medically screened. [facility] 21:28 Differential diagnosis: humeral head fracture, DJD, tendonitis, Blunt Chest Trauma maurisio Chest Wall Contusion Chest Wall Injury. Differential diagnosis: contusion, fracture, multiple trauma, sprain, strain. Data reviewed: vital signs, nurses notes, lab test result(s), radiologic studies, plain films. Data interpreted: quality assurance monitor chassis: rate is 69 beats/min, rhythm is regular, Pulse oximetry: on room air is 99 %. Test interpretation: by ED physician or midlevel provider: plain radiologic studies. Counseling: I had a detailed discussion with the patient and/or guardian regarding: the historical points, exam findings, and any diagnostic results supporting the discharge/admit diagnosis, lab results, radiology results. 05/29 21:24 Order name: CBC with Diff; Complete Time: 21:52 maurisio 05/29 21:24 Order name: Comprehensive Metabolic Panel; Complete Time: 22:16 maurisio 05/29 22:42 Order name: Troponin High Sensitivity [facility] 05/29 22:42 Order name: BNP maurisio 05/29 23:00 Order name: SARS RAPID as6 05/30 03:40 Order name: Basic Metabolic Panel EDME 05/29 21:24 Order name: Humerus Right XRAY; Complete Time: 22:42 [facility] 05/29 21:24 Order name: Clavicle Left XRAY; Complete Time: 22:42 [facility] 05/29 21:24 Order name: Humerus Left XRAY; Complete Time: 22:42 [facility] 05/29 21:24 Order name: Chest Single View XRAY; Complete Time: 22:42 [facility] 05/29 22:42 Order name: EKG; Complete Time: 22:43 [facility] 05/29 22:42 Order name: EKG - Nurse/Tech; Complete Time: 23:27 [facility] 05/29 22:46 Order name: Shoulder Immobilizer; Complete Time: 23:27 [facility] EC: Rate is 58 beats/min. Rhythm is regular. QRS [place] is Normal. [place] interval is normal. QRS maurisio interval is normal. QT interval is normal. No Q waves. T waves are Normal. No ST changes noted. Clinical impression: Normal ECG and No evidence of ischemia. Interpreted by me. Reviewed by me. Administered Medications: 21:35 Drug: NS 0.9% 500 ml Route: IV; Rate: bolus; Site: right antecubital; pf1 22:30 Follow up: Response: No adverse reaction pf1 21:35 Drug: Ketorolac 30 mg Route: IVP; Site: right antecubital; pf1 22:30 Follow up: Response: No adverse reaction; Pain is decreased pf1 21:35 Drug: Dilaudid (HYDROmorphone) 1 mg Route: IVP; Site: right antecubital; pf1 22:30 Follow up: Response: No adverse reaction; Pain is decreased pf1 21:35 Drug: Zofran (Ondansetron) 4 mg Route: IVP; Site: right antecubital; pf1 22:30 Follow up: Response: No adverse reaction pf1 23:05 Not Given (Duplicate Order): fentaNYL Patch (50 mcg/hr) 1 patches Transdermal once [facility] 23: Drug: fentaNYL Patch (25 mcg/hr) 1 patches Route: Transdermal; Site: affected area; as6 Disposition Summary: 05/29/22 22:44 Hospitalization Ordered Hospitalization Status: Observation maurisio Provider: Akash Ho cha Condition: Fair maurisio Problem: new maurisio Symptoms: have improved maurisio Bed/Room Type: Standard maurisio Location: Telemetry/MedSurg (observation)(05/30/22 10:44) ja1 Room Assignment: 220(05/30/22 10:44) salvador Diagnosis - Fall on same level, unspecified maurisio - Displaced fracture of shaft of left clavicle maurisio - Fracture of upper end of humerus - SURGICAL NECK, MILD DISPLACEMENT maurisio - Contusion of left knee maurisio - Contusion of right knee - NON AMBULATORY maurisio - Cardiomegaly maurisio Forms: - Medication Reconciliation Form maurisio - SBAR form maurisio Signatures: Dispatcher [employer] EDMS Marcellus Zimmerman MD MD cha Attema, Lee, LINK TRAINER-C LINK TRAINER-Cla1 Kaitlin Lira, RN RN Truman Solis RN RN ja1 Sarah Rm tw5 Tiburcio Dwyer RN RN as6 Andree bee RN RN pf1 Corrections: (The following items were deleted from the chart) 05/30 00:13 05/29 22:44 Telemetry/MedSurg (observation) [facility] 05/30 00:13 05/29 22:44 [facility] 05/30 10:44 00:13 [facility] ja1 10: 00:13 ERHOLD- cg ja1
[2022-05-29] MEDS ORDERED: FENTANYL 25 MCG/PATCH TD ONE (23:02)
[2022-05-29 23:33] LABS: Troponin High Sensitivity 9.1 pg/mL (<58.9)
[2022-05-30 00:16] LABS: SARS-CoV-2 Antigen Rapid Res Negative (Negative)
--- NOTE | 2022-05-30 00:32 | P.HP ---
Certification for Inpatient Patient admitted to: Observation With expected LOS: <2 Midnights Patient will require the following post-hospital care: None Practitioner: I am a practitioner with admitting privileges, knowledge of patient current condition, hospital course, and medical plan of care. Services: Services provided to patient in accordance with Admission requirements found in Title 42 Section 412.3 of the Code of Federal Regulations Patient History Date of Service: 05/30/22 Reason for admission: FERNANDO, intractable pain, fall History of Present Illness: 77-year-old female with history of osteoarthritis, hypertension presents emergency department after mechanical fall. She fell at around 11 AM this morning after tripping over a rug. She was seen at [place] emergency department diagnosed with right humeral fracture, left clavicular fracture and discharged home. Patient's house has steep steps on the front and back with rails on the side that she typically uses to sister into the home but given that she is no longer able to use her upper extremities due to these recent fractures she was unable to get into her home also continue to have severe pain. She came to the emergency department here for further evaluation labs were performed which revealed acute kidney injury with creatinine 1.76 GFR of 29, x-rays were obtained which redemonstrated fractures. ED provider wishes to admit under observation for FERNANDO, intractable pain. Discussed discharge planning with family, PT eval for tomorrow to see if patient is capable of doing they stated that worse case scenario she could be discharged back home if we can arrange for some assistance getting her into the house. Allergies Sulfa (Sulfonamide Antibiotics) Allergy (Unverified 01/06/15 11:25) Unknown - Past Medical/Surgical History -: OA -: Hypertension -: Breast cancer 2010 -: Left mastectomy -: Carpal tunnel Psychosocial/ Personal History: Patient lives at home, alone - Family History Family History: Reviewed- Non-Contributory - Social History Smoking Status: Former smoker Alcohol use: No CD- Drugs: No Caffeine use: Yes Place of Residence: Home Review of Systems 10-point ROS is otherwise unremarkable Musculoskeletal: Shoulder Pain, Arm Pain Physical Examination - Physical Exam General: Alert, In no apparent distress, Oriented x3 HEENT: Atraumatic, PERRLA, Mucous membr. moist/pink, EOMI, Sclerae nonicteric Neck: Supple, 2+ carotid pulse no bruit, No LAD, Without JVD or thyroid abnormality Respiratory: Clear to auscultation bilaterally, Normal air movement Cardiovascular: Regular rate/rhythm, Normal S1 S2 Capillary refill: <2 Seconds Gastrointestinal: Normal bowel sounds, No tenderness Musculoskeletal: No tenderness Integumentary: No rashes Neurological: Normal speech, Normal strength at 5/5 x4 extr, Normal tone, Normal affect - Studies Laboratory Data (last 24 hrs) 05/29/22 21:25: Sodium 136, Potassium 4.3, BUN 39 H, Creatinine 1.76 H, Glucose 149 H, Total Bilirubin 0.7, AST 29, ALT 29, Alkaline Phosphatase 62 05/29/22 21:25: WBC 11.20 H, Hgb 10.9 L, Hct 32.6 L, Plt Count 159 Assessment and Plan - Plan Assessment: Acute kidney injury Intractable pain secondary to right humeral fracture, left clavicular fracture Debility related to above Plan: Acute kidney injury: Continue gentle IV fluids, if no significant improvement in morning may require renal ultrasound, nephrology consult. Intractable pain secondary to right humeral fracture, left clavicular fracture: As needed pain medications in place, patient sees orthopedic doctor Dr. Lomeli who has been consulted. If he is unavailable on-call Ortho may be consulted. Anticipate outpatient management. Debility related to above: PT consult in place, primary concern is patient's home has steep stairway's front and rear entrances with railings in place that she typically uses for assistance to get in as she has chronic problems with her left knee as well as obesity now complicated with the fact that she is unable to use either of her upper extremities to brace herself. Await recommendations from PT, patient/daughter report if no other options are available they are likely open to be discharged back home if assistance can be arranged to help get her into the house. DVT PPX: Heparin Code status: Full Discharge Plan: Home Plan to discharge in: 24 Hours - Advance Directives Does patient have a Living Will: No Does patient have a Durable POA for Healthcare: No - Code Status/Comfort Care Code Status Assessed: Yes (Full code) Critical Care: No Time Spent Managing Pts Care (In Minutes): 55
[2022-05-30] MEDS ORDERED: ONDANSETRON 4 MG/2 ML VIAL IV PRN (01:32)
[2022-05-30] MEDS: NA CHLORIDE 0.9% 1,000 ML IV SCH ×2 (01:32→17:41)
[2022-05-30] MEDS ORDERED: ACETAMINOPHEN 500 MG TAB PO PRN (01:32)
[2022-05-30] MEDS ORDERED: TRAMADOL HCL 50 MG TAB PO PRN (01:32)
[2022-05-30] MEDS ORDERED: NA CHLORIDE 0.9% 1,000 ML ONE (02:07)
[2022-05-30 02:36] VITALS: BMI 34.2
[2022-05-30 03:08] LABS: Potassium 4.6 mmol/L (3.5-5.1)
[2022-05-30] MEDS ORDERED: HEPARIN 5000 UNIT/ML 1 ML VIAL ONE (08:15)
[2022-05-30] MEDS: HEPARIN 5000 UNIT/ML 1 ML VIAL SQ SCH ×2 (09:00→20:11)
--- NOTE | 2022-05-30 16:25 | EKG ---
Test Date: 2022-05-29 Test Time: 23:21:06 Taxonomist: COLIN MEASUREMENT RESULTS: Intervals: Rate: 58 OK: QRSD: 90 QT: 446 QTc: 437 [place]: P: OK: QRS: 112 T: 137 INTERPRETIVE STATEMENTS: Junctional rhythm Right axis deviation Abnormal ECG No previous ECG available for comparison Electronically Signed On 05-30-22 16:22:57 SERICULTURE TEACHER by Zhang Whitfield
[2022-05-30] MEDS: HYDROCODONE/APAP 7.5/325 MG TAB PO PRN (17:47)
[2022-05-31 05:01] LABS: Potassium 3.9 mmol/L (3.5-5.1)
[2022-05-31 05:04] LABS: Absolute Lymphocytes (CBC) 2.4 K/uL (0.7-4.9); Hematocrit 25.9 % (36.0-45.0); Lymphocytes % 35.1 % (15.3-44.8); MCV 81.4 fL (80-100); MPV 8.8 fL (7.6-11.3); RBC Red Blood Cell Count 3.18 M/uL (3.86-4.86)
[2022-05-31] MEDS: NA CHLORIDE 0.9% 1,000 ML IV SCH ×2 (06:21→19:49)
[2022-05-31] MEDS: HYDROCODONE/APAP 7.5/325 MG TAB PO PRN ×2 (06:24→16:12)
[2022-05-31] MEDS: HEPARIN 5000 UNIT/ML 1 ML VIAL SQ SCH ×2 (10:09→21:05)
--- NOTE | 2022-05-31 17:38 | P.CNS ---
Chief Complaint: FERNANDO, intractable pain, fall Allergies Sulfa (Sulfonamide Antibiotics) Allergy (Verified 05/30/22 01:32) Unknown - Past Medical/Surgical History -: OA -: Hypertension -: Breast cancer 2010 -: Left mastectomy -: Carpal tunnel Psychosocial/ Personal History: Patient lives at home, alone - Social History Smoking Status: Former smoker Alcohol use: No CD- Drugs: No Caffeine use: Yes Place of Residence: Home Physical Examination Temp Pulse Resp BP Pulse Ox 96.9 F 63 16 114/57 L 94 05/31/22 16:00 05/31/22 16:00 05/31/22 16:12 05/31/22 16:00 05/31/22 16:12 Laboratory Data (last 24 hrs) 05/31/22 03:58: Sodium 137, Potassium 3.9 D, BUN 44 H, Creatinine 1.44 H, Glucose 115 H 05/31/22 03:58: WBC 6.80, Hgb 8.8 L, Hct 25.9 L, Plt Count 120 L Imagings Data: EXAM DESCRIPTION: RAD - Humerus Left - 05/29/2022 10:23 pm CLINICAL HISTORY: PAIN COMPARISON: Humerus Right dated 05/29/2022 FINDINGS: No fracture or dislocation seen. Dictated By: Delfin Gardner MD 05/29/222235 Exam Date: 05/29/22 Reason for Exam: PAIN Report Status: Signed EXAM DESCRIPTION: RAD - Humerus Right - 05/29/2022 10:23 pm CLINICAL HISTORY: PAIN COMPARISON: No comparisons FINDINGS: Mildly angulated fracture of the proximal right humeral neck is seen. No dislocation. Dictated By: Delfin Gardner MD 05/29/222236 Report Status: Signed EXAM DESCRIPTION: RAD - Clavicle Left - 05/29/2022 10:23 pm CLINICAL HISTORY: PAIN COMPARISON: No comparisons FINDINGS: Mildly angulated fracture mid shaft of the left clavicle is present. Dictated By: Delfin Gardner MD 05/29/22 223 - Problems (1) Clavicle fracture, shaft Current Visit: Yes Status: Acute Plan: non operative treatment with immobilization in arm sling and pain control Qualifiers: Encounter type: initial encounter Fracture type: closed Fracture alignment: displaced Laterality: left Qualified Code(s): S42.022A - Displaced fracture of shaft of left clavicle, initial encounter for closed fracture (2) Fracture of proximal humerus Onset Date: ~05/31/22 Current Visit: Yes Status: Acute Qualifiers: Encounter type: initial encounter Fracture type: closed Fracture morphology: other fracture Fracture alignment: displaced Laterality: right Qualified Code(s): S42.291A - Other displaced fracture of upper end of right humerus, initial encounter for closed fracture Conclusions/Impression: Immobilization in am sling, follow up in the office in 1 week with x-rays from nursing facility
[2022-06-01] MEDS: NA CHLORIDE 0.9% 1,000 ML IV SCH (08:37)
[2022-06-01] MEDS: HEPARIN 5000 UNIT/ML 1 ML VIAL SQ SCH (08:37)
[2022-06-01] MEDS: HYDROCODONE/APAP 7.5/325 MG TAB PO PRN ×2 (12:45→20:01)
--- NOTE | 2022-06-01 15:44 | P.PN ---
Date of Service: 06/01/22 Subjective Continues to wait for placement. No new complaints. Physical Examination - Physical Exam General: Alert, In no apparent distress, Oriented x3 Respiratory: Clear to auscultation bilaterally, Normal air movement Cardiovascular: Regular rate/rhythm, Normal S1 S2 Gastrointestinal: Normal bowel sounds, No tenderness Musculoskeletal: Tenderness in the right upper extremity and left upper extremity on range of motion Integumentary: No rashes Neurological: No focal deficits; unable to examine upper extremity because of fractures Assessment and Plan - Plan Assessment: Acute kidney injury Intractable pain secondary to right humeral fracture, left clavicular fracture Debility related to above Plan: 1. Continue with IV hydration and monitor renal function closely which is improved 2. Orthopedic consultation appreciated 3. Arrange plan for [facility] facility placement 4. GI DVT prophylaxis
--- NOTE | 2022-06-01 15:44 | P.PN ---
Date of Service: 05/31/22 Subjective Patient is doing well. Waiting for orthopedic surgery. Conservative management is most likely recommended. Awaiting for placement. Physical Examination - Physical Exam General: Alert, In no apparent distress, Oriented x3 Respiratory: Clear to auscultation bilaterally, Normal air movement Cardiovascular: Regular rate/rhythm, Normal S1 S2 Gastrointestinal: Normal bowel sounds, No tenderness Musculoskeletal: Tenderness in the right upper extremity and left upper extremity on range of motion Integumentary: No rashes Neurological: No focal deficits; unable to examine upper extremity because of fractures Assessment and Plan - Plan Assessment: Acute kidney injury Intractable pain secondary to right humeral fracture, left clavicular fracture Debility related to above Plan: 1. Continue with IV hydration and monitor renal function closely which is improved 2. Orthopedic consultation appreciated 3. Arrange plan for assisted facility placement 4. GI DVT prophylaxis
[2022-06-01] MEDS: ENOXAPARIN 40 MG/0.4 ML SQ SCH (18:00)
[2022-06-02 06:51] LABS: Absolute Lymphocytes (CBC) 2.2 K/uL (0.7-4.9); Lymphocytes % 35.4 % (15.3-44.8); MCV 79.8 fL (80-100); MPV 8.4 fL (7.6-11.3); RBC Red Blood Cell Count 3.25 M/uL (3.86-4.86)
[2022-06-02 07:03] LABS: Potassium 4.1 mmol/L (3.5-5.1)
[2022-06-02 07:08] LABS: Magnesium 1.2 mg/dL (1.8-2.4)
[2022-06-02] MEDS: HYDROCODONE/APAP 7.5/325 MG TAB PO PRN ×2 (08:37→20:12)
[2022-06-02] MEDS ORDERED: Magnesium Sulfate 2gm IVPB 2 G/50 ML BAG IV ONE ×2 (09:00→10:00)
[2022-06-02] MEDS: ENOXAPARIN 40 MG/0.4 ML SQ SCH (17:00)
[2022-06-03] MEDS: HYDROCODONE/APAP 7.5/325 MG TAB PO PRN ×3 (05:59→19:09)
[2022-06-03] MEDS: ENOXAPARIN 40 MG/0.4 ML SQ SCH (16:19)
[2022-06-04] MEDS ORDERED: POLYETHYL GLY 3350 17 GM/DOSE PO ONE (00:09)
[2022-06-04 10:54] VITALS: O2SAT 95
--- NOTE | 2022-06-04 12:38 | P.PN ---
Date of Service: 06/02/22 Subjective Continues to wait for placement. No new complaints. Avoidable day within the hospital noted Physical Examination - Physical Exam General: Alert, In no apparent distress, Oriented x3 Gastrointestinal: Normal bowel sounds, No tenderness Musculoskeletal: Tenderness in the right upper extremity and left upper extremity on range of motion Neurological: No focal deficits; unable to examine upper extremity because of fractures Assessment and Plan - Plan Assessment: Acute kidney injury Intractable pain secondary to right humeral fracture, left clavicular fracture Debility related to above Plan: Continue plan of care as mentioned below: 1. Continue with pain control and diet as tolerated; physical therapy assistance appreciated 2. Orthopedic consultation appreciated 3. [facility] 4. GI DVT prophylaxis
--- NOTE | 2022-06-04 12:40 | P.PN ---
Date of Service: 06/03/22 Subjective No new changes. Continues to wait for placement. Another avoidable day in the hospital. Physical Examination - Physical Exam General: Alert, In no apparent distress, Oriented x3 Awaiting for discharge planning. Musculoskeletal: Tenderness in the right upper extremity and left upper extremity on range of motion Assessment and Plan - Plan Assessment: Acute kidney injury Intractable pain secondary to right humeral fracture, left clavicular fracture Debility related to above Plan: Outpatient orthopedic follow-up. Diet as tolerated. Continue with pain medication. Awaiting for placement.
--- NOTE | 2022-06-04 12:42 | P.DS ---
Discharge Date: 06/04/22 Disposition: [facility]SFER TO [facility] Discharge Condition: GOOD Reason for Admission: FERNANDO, intractable pain, fall Brief History of Present Illness: Patient was admitted to the hospital after falling again having pain in her upper extremities. Patient was slightly dehydrated. This was corrected with IV fluids. We went ahead and arrange for [facility] facility placement. Hospital Course: She had a prolonged hospital stay because of insurance lag time for approving [facility] facility. Patient is clinically doing well. She had about 3 avoidable days in the hospital. At this time she is stable for discharge to [facility] facility. Vital Signs/Physical Exam: Temp Pulse Resp BP Pulse Ox 98.5 F 68 16 137/61 95 06/04/22 08:00 06/04/22 08:00 06/04/22 08:00 06/04/22 08:00 06/04/22 08:00 General: Alert, In no apparent distress, Oriented x3 Laboratory Data at Discharge: WBC 6.10 K/uL (4.3-10.9) 06/02/22 06:16 Hgb 8.9 g/dL (12.0-15.0) L 06/02/22 06:16 Hct 26.0 % (36.0-45.0) L 06/02/22 06:16 Plt Count 127 K/uL (152-406) L 06/02/22 06:16 Sodium 136 mmol/L (136-145) 06/02/22 06:16 Potassium 4.1 mmol/L (3.5-5.1) 06/02/22 06:16 BUN 23 mg/dL (7-18) H 06/02/22 06:16 Creatinine 0.89 mg/dL (0.55-1.3) 06/02/22 06:16 Glucose 111 mg/dL (74-106) H 06/02/22 06:16 Magnesium 1.9 mg/dL (1.8-2.4) 06/02/22 14:55 Total Bilirubin 0.7 mg/dL (0.2-1.0) 05/29/22 21:25 AST 29 U/L (15-37) 05/29/22 21:25 ALT 29 U/L (12-78) 05/29/22 21:25 Alkaline Phosphatase 62 U/L (45-117) 05/29/22 21:25 Physician Discharge Instructions: -DC IV and DC to [facility] -Follow-up with PCP in 1 to 2 weeks -Follow-up with Ortho in 1 to 2 weeks -Please call Dr. Ho at [phone] if any questions regarding hospital stay -Please call nursing station at [phone] if any nursing or medication questions -Return to the emergency room if symptoms worsen Diet: AHA Activity: Fall precautions Followup: Unknown,U [Primary Care Provider] - Time spent managing pt's care (in minutes): 35
[2022-06-04] MEDS: HYDROCODONE/APAP 7.5/325 MG TAB PO PRN (15:46)
[2022-06-04 16:33] VITALS: BP 138/68; TEMP 97.9
== END 2022-06-04 16:30 | DRG 683 ==
LOC: ER 20:27 → ERHOLD 05-30 00:09 → 2ND 05-30 11:17 → OBSVTOIN 05-31 09:50
PROVIDERS: ADMIT Hospitalist; ATTEND Hospitalist
DX: N17.9 Acute kidney failure, unspecified (principal); S42.291A Other displaced fracture of upper end of right humerus, initial encounter for closed fracture; S42.022A Displaced fracture of shaft of left clavicle, initial encounter for closed fracture; E86.0 Dehydration; R53.81 Other malaise; S80.01XA Contusion of right knee, initial encounter; I51.7 Cardiomegaly; I10 Essential (primary) hypertension; M19.90 Unspecified osteoarthritis, unspecified site; E66.9 Obesity, unspecified; Z68.34 Body mass index [BMI] 34.0-34.9, adult; Z88.2 Allergy status to sulfonamides; Z87.891 Personal history of nicotine dependence; Z85.3 Personal history of malignant neoplasm of breast; Z90.12 Acquired absence of left breast and nipple; Z20.822 Contact with and (suspected) exposure to COVID-19
CPT/HCPCS: 36415; 71045; 80048; 80053; 83735; 83880; 84484; 85025; 87811; 93005; 96374; 96375; 97110; 97161; 97530; 99284; G0378; J1170; J1644; J1650; J2405; J3475; J7030; J7040

== ENCOUNTER 2022-08-15 11:48 | Emergency (ER) | payer MEDICARE, OTHER ==
--- OUTSIDE RECORDS SUMMARY | 2022-08-15 11:52 | XMS REPORT | Continuity of Care Document ---
:1945 Author Organization [facility] t Address [address] [place] [address] Care Team Providers Name Role Phone Pcp, Patient Does Not Have A Primary Care Physician [id number] Ramon Mckeon Attending Clinician Unavailable Doctor Unassigned, [place] Attending Clinician Unavailable Juan Jose SALEEM, Stephen L Attending Clinician Nancy Solorzano DO Attending Clinician NANCY SOLORZANO Attending Clinician Unavailable NANCY SOLORZANO Admitting Clinician Unavailable Payers Payer Name Policy Type Policy Number Effective Date Expiration Date S [facility] [employer] [id number] 2022 (MEDICARE 00:00:00 REPLACEMENT HMO) Problems Condition Condition Condition Status Onset Resolution Last Treating Co mments Source Name Details Category Date Date Treatment Clinician Date [id number] Mild Problem Common sprain of Spirit left - CHI ankle, [facility] [id number] Pain of Problem Commo n joint of Spirit left ankle - CHI and foot [facility] [id number] Primary Problem Comm on osteoarthr Spirit itis of - CHI left knee [facility] No known No known Disease Unive rs active active ity of problems problems [facility] Allergies, Adverse Reactions, Alerts Allergy Allergy Status Severity Reaction(s) Onset Inactive Treating Comm ents Source Name Type Date Date Clinician SULFUR DRUG Active Rash 2021-07 Univers INGREDI 07-29 ity of 00:00: [place] 00 Medical Angelica Sulfur Propensi Active Rash 2021-07 Univers ty to 07-29 ity of adverse 00:00: [place] reaction 00 Medical s Branch Social History Social Habit Start Date Stop Date Quantity Comments Source History of Common Spirit - Tobacco Use [facility] Exposure to 2022-05-19 2022-05-29 Unable to assess Univers ity of SARS-CoV-2 00:00:00 14:21:00 [facility] (event) Angelica Sex Ass[birth year] Universit y of 00:00:00 00:00:00 [facility] Smoking Status Start Date Stop Date Source Tobacco smoking [place] consumption [place] Medical Bran ch Former Smoker 2022-05-09 00:00:00 2022-05-09 Common Spiri t - [facility] 00[facility]00:[facility] nter Medications Ordered Filled Start Stop Current Ordering Indication Dosage Frequency Signature Comments Components Source Medication Medication Date Date Medication? Clinician (SIG) Name Name HYDROcodone 2021-07 No 1{tbl} 1 tablet, Univers -acetaminop 07-29 Oral, ity of hen (NORCO) 22:45: 21:55 [place] 10[place]325 mg 00 :00 dose, On Medica l tablet 1 e Angelica tablet 05/29/22 at 1645, Routine ondansetron 2021-07 No 4mg 4 mg, Univ ers (ZOFRAN-ODT 07-29 Oral, ity of ) 22:30: 21:55 ONCE, 1 [place] disintegrat 00 :00 dose, On Medi ronald ing tablet Sat Branch 4 mg 05/29/22 at 1630, Routine FENTanyl PF 2021-07 No 75ug 75 mcg, Un flip (SUBLIMAZE 07-29 Slow IV ity o f (PF)) 21:45: 20:59 Push, [place] injection 00 :00 ONCE, 1 Medical 75 mcg dose, On Branch 05/29/22 at 1545, Routine naproxen 2021-07 Yes [id number] 550mg Take 1 Un flip sodium 550 1-29 tablet by [place]y of mg tablet 00:[place] the Medical morning Branch and 1 tablet in the evening. Take with meals. methylPREDN 2021-07 Yes [id number] Take by [facility] ISolone 4 1-29 mouth ity of mg tablets 00:00: [place] 00 CTIONS. Medical follow Branch package directions naproxen 2021-07 Yes [id number] 550mg Take 1 Un flip sodium 550 1-29 tablet by [place]y of mg tablet 00:00[place] the Medical morning Branch and 1 tablet in the evening. Take with meals. methylPREDN 2021-07 Yes [id number] Take by [facility] ISolone 4 -29 mouth ity of mg tablets 00:00: [place] CTIONS. Medical follow Branch package directions naproxen 2021-07 Yes [id number] 550mg Take 1 Un flip sodium 550 1-29 tablet by [place]y of mg tablet 00:00[place] the Medical morning Branch and 1 tablet in the evening. Take with meals. methylPREDN 2021-07 Yes [id number] Take by [facility] ISolone 4 -29 mouth ity of mg tablets 00:00: [place] 00 CTIONS. Medical follow Branch package directions HYDROcodone 2021-07- Yes 4647 .5{tbl} Take 0.5-1 Univers -acetaminop 1-29 12-07 tablets by i ty of [place] (NORCO) 00:00: 05:59 [place] 10-325 mg 00 :00 every 6 Medical tablet (six) Branch hours as needed for Pain (scale 7-10) for up to 7 days. Indication s: acute pain HYDROcodone 2021-07- Yes 4647 .5{tbl} Take 0.5-1 Univers -acetaminop 1-29 12-07 tablets by i ty of [place] (NORCO) 00:00: 05:59 [place] 10-325 mg 00 :00 every 6 Medical tablet (six) Branch hours as needed for Pain (scale 7-10) for up to 7 days. Indication s: acute pain methocarbam 2021-07- Yes [id number] 500mg Take 1 Univers oL 500 mg 07-29-05 tablet by ity of tablet 00:00: 05:59 mouth in [place] 00 :00 the Medical morning Branch and 1 tablet at noon and 1 tablet in the evening. Do all this for 5 days. Bupivicaine Bupivicaine 2021-07 No 2.5mg Common Acra Acra 1-07 Spirit 00:00: - [facility] Kenalog 2021-07 No 40mg Common (Triamcinol (Triamcinol 1-07 S pirit one) one) 00:00: - [facility] Bupivicaine Bupivicaine 2021-07 No 2.5mg Common Acra Acra -07 Spirit 00:00[facility]-07 No 40mg Common (Triamcinol (Triamcinol 1-07 S pirit one) one) 00:00: - [facility] Bupivicaine Bupivicaine 2021- No 2.5mg Common Acra Acra 1-07 Spirit 00:00: - CHI 00 [facility] Kenalog 2021-07 No 40mg Common (Triamcinol (Triamcinol 1-07 S pirit one) one) 00:00: - CHI 00 [facility] Bupivicaine Bupivicaine 2021-07 No 2.5mg Common Acra Acra 1-07 Spirit 00:00: - [facility] Kenalog 2021-07 No 40mg Common (Triamcinol (Triamcinol 1-07 S pirit one) one) 00:00: - CHI 00 [facility] Bongalog Kenalog 0 No 40mg Common (Triamcinol (Triamcinol 4-12 S pirit one) one) 00:00: - CHI 00 [facility] Bupivicaine Bupivicaine 2021-0 No 2.5mg Common Acra Acra 4-12 Spirit 00:00: - [facility] Kenalog Kenalog 2021-0 No 40mg Common (Triamcinol (Triamcinol 4-12 S pirit one) one) 00:00: - CHI 00 [facility] Bupivicaine Bupivicaine 2021-0 No 2.5mg Common Acra Acra 4-12 Spirit 00:00: - [facility] Kenalog 0 No 40mg Common (Triamcinol (Triamcinol 4-12 S pirit one) one) 00:00: - [facility] Bupivicaine Bupivicaine 2021-0 No 2.5mg Common Acra Acra 4-12 Spirit 00:00: - [facility] Bongalog Kenalog 0 No 40mg Common (Triamcinol (Triamcinol 4-12 S pirit one) one) 00:00: - [facility] Bupivicaine Bupivicaine 2021-0 No 2.5mg Common Acra Acra 4-12 Spirit 00:00: - [facility] Kenalog 0 No 40mg Common (Triamcinol (Triamcinol 4-12 S pirit one) one) 00:00: - [facility] Bupivicaine Bupivicaine 2021-0 No 2.5mg Common Acra Acra 4-12 Spirit 00:00: - CHI 00 [facility] Benazepril Benazepril Yes Dwaine not C ommon HCl HCl Devi defined Spirit - [facility] Calcium Calcium Yes Dwaine not Common Devi defined Spirit [facility] Multivitami Multivitami Yes Dwaine not Common n n Devi defined Spirit - [facility] Paroxetine Paroxetine Yes Dwaine not C ommon HCl HCl Devi defined Spirit - [facility] Neurontin Neurontin Yes Dwaine TAKE ONE Common Devi CAPSULE BY Spirit MOUTH TWO - [facility] Zo[facility] Zofran Yes Dwaine 1-2 po q 4 Com mon Devi hrs for Spirit nausea - [facility] Vitamin D2 Vitamin D2 No Vitamin D2 [...] Lisinopril hydroCHLORO hydroCHLORO -hydroCHLO thiazide thiazide ROthiazide prednisoLON prednisoLON No prednisoLO E Acetate E [...] Lisinopril hydroCHLORO hydroCHLORO -hydroCHLO thiazide thiazide ROthiazide prednisoLON prednisoLON No prednisoLO E Acetate E [...] Lisinopril hydroCHLORO hydroCHLORO -hydroCHLO thiazide thiazide ROthiazide prednisoLON prednisoLON No prednisoLO E Acetate E [...] 2022-05-29 22:00:00 128 mm[Hg] Univer sity of [facility] Diastolic blood 2022-05-29 22:00:00 67 mm[Hg] [facility] Heart rate 2022-05-29 22:00:00 65 /min [facility] Oxygen saturation in 2022-05-29 22:00:00 98 /min [facility] blood by [facility] Pulse oximetry Angelica Body temperature 2022-05-29 21:51:32 36.67 Zoe [facility] Respiratory rate 2022-05-29 21:51:32 18 /min [facility] Body height 2022-05-29 20:19:00 180.3 cm [facility] Body weight 2022-05-29 20:19:00 111.585 kg [facility] BMI 2022-05-29 20:19:00 34.31 kg/m2 [facility] height 2022-05-07 09:30:00 71 [in_i] [facility] weight 2022-05-07 09:30:00 238 [lb_av] [facility] temperature 2022-05-07 09:30:00 98.4 [degF] [facility] Center bmi 2022-05-07 09:30:00 33.19 kg/m2 Common S pirit - [facility] blood pressure 2022-05-07 09:30:00 134 mm[Hg] Common Spirit - systolic [facility] blood pressure 2022-05-07 09:30:00 78 mm[Hg] Common Spirit - diastolic [facility] Procedures Procedure Date / Time Performed Performing Clinician Sour e EXTERNAL PROVIDER 2022-06-27 06:01:00 Doctor Unassigned, No Univ [facility] RECORDS Name Medical Branch CT CERVICAL SPINE WO 2022-05-29 21:41:00 Nancy Solorzano [facility] CT HEAD WO CONTRAST 2022-05-29 21:41:00 [facility] XR SHOULDER <2 VW 2022-05-29 21:34:58 Nancy Solorzano [facility] LEFT Medical Branch XR CHEST 1 VW 2022-05-29 21:25:58 Nancy Solorzano [place] [facility] XR HIPS 3 VW RIGHT 2022-05-29 21:25:58 Nancy Solorzano [facility] of [facility] XR SHOULDER 2+ VW 2022-05-29 21:25:58 Singer Nancy [facility] RIGHT Medical Branch Encounters Start End Encounter Admission Attending Care Care Encounter Source Date/Time Date/Time Type Type Clinicians Facility Department ID 2022-07-19 Outpatient Mckeon, STLMLC STLMLC [id number] Common 14:28:01 Ramon [address] [facility] 2022-07-18 Outpatient Mckeon, STLMLC STLMLC [id number] Common 14:34:00 Ramon [address] [facility] 2022-07-04 Outpatient Mckeon, STLMLC STLMLC [id number] Common 10:53:01 Ramon [address] [facility] 2022-04-20 Outpatient Mckeon, STLMLC STLMLC [id number] Common 09:51:01 Ramon [facility] 2021-10-09 Outpatient Mckeon, STLMLC STLMLC [id number] Common 11:00:02 Ramno [facility] 2022-07-18 2022-07-18 Outpatient DMG [id number] Devoted 00:00:00 00:00:00 [id number] Medica l Group 2022-06-28 2022-06-28 (TEL) STLMLC STLMLC [id number] Co mmon 00:00:00 00:00:00 [facility] 2022-06-27 2022-06-27 Orders Doctor HONG [id number] Univers 00:00:00 00:00:00 Only Unassigned, MEGAN [id number] ity of [facility] [id number] Matthew as [id number] [facility] 009 Branch 2022-06-04 2022-06-04 Telephone Juan Jose [facility] [id number] [facility] 00:00:00 00:00:00 [facility] [id number] it y of [place] [id number] Matthew as DIANE?BLEA [phone] [address] MEDICAL OFFICE BUILDING 2022-05-31 2022-05-31 (TEL) [facility] [id number] Co mmon 00:00:00 00:00:00 [facility] 2022-05-29 2022-05-29 Emergency [facility] [id number] Univers 14:06:00 17:33:00 Nancy SANTANA [id number] i ty of [place] [id number] [place] [facility] [id number] [facility] 084 Angelica 2022-05-29 2022-05-29 Emergency X [facility] ERT [id number] Univers 14:06:00 17:33:00 NANCY tobar of [facility] 2022-05-17 2022-05-17 (TEL) STLC STLC [id number] Co mmon 00:00:00 00:00:00 Spirit [facility] 2022-05-07 2022-05-07 [facility] [id number] Co mmon 00:00:00 00:00:00 VISIT [facility] PT - CHI LEVEL 4 [facility] 2022-04-17 2022-04-17 Outpatient DMG DMG [id number] Devoted 00:00:00 00:00:00 [id number] Medica l Group 2021-12-06 2021-12-06 (TEL) STLMLC STLMLC [id number] Co mmon 00:00:00 00:00:00 Spirit - [facility] 2018-09-24 2018-09-24 Outpatient Ayesha [place] [id number] Common 15:00:00 15:00:00 [facility] Joint - [facility] Clinic of [facility] 2018-08-28 2018-08-28 Outpatient Ayesha [place] [id number] Common 08:30:00 08:30:00 t [facility] Sp[facility] t and Joint Joint - [facility] Clinic of [facility] Results This patient has no known results.
--- NOTE | 2022-08-15 13:19 | RAD REPORT ---
EXAM DESCRIPTION: RAD - Humerus Right - 08/15/2022 1:00 pm CLINICAL HISTORY: DEFORMITY COMPARISON: Humerus Right dated 05/29/2022; Shoulder Right 2 View dated 08/15/2022 FINDINGS/IMPRESSION: Subacute/chronic right proximal humerus fracture involving the surgical neck wi th similar alignment compared with 05/29/2022. No new fracture identified.
--- NOTE | 2022-08-15 13:19 | RAD REPORT ---
EXAM DESCRIPTION: RAD - Shoulder Right 2 View - 08/15/2022 1:00 pm CLINICAL HISTORY: DEFORMITY COMPARISON: No comparisons FINDINGS/IMPRESSION: Subacute/chronic fracture of the right proximal humerus at the surgical neck wi th similar alignment. Alignment is near anatomic. There is some sclerosis along the fracture line con sistent with healing. No new acute fracture identified. No dislocation of the right shoulder.
--- NOTE | 2022-08-15 14:41 | EDPHYS ---
Physician Documentation [facility] Name: Sudha Galna Age: 77 yrs Sex: Female : 1945 Arrival Date: 08/15/2022 Time: 11:53 Bed IW10 Private MD: ED Physician Kit Rodriguez HPI: 08/15 12:01 This 77 yrs old Female presents to ER via Unassigned with complaints of Arm bs3 Pain. 12:01 77yo f hx of arm fracture presents with continued pain, per her OT she isn't healing as bs3 fast as she wanted to and therefore they rec she come here for further eval. Historical: - Allergies: 12:08 Sulfa (Sulfonamide Antibiotics); ap3 - PMHx: 12:08 Arthritis; breast cancer; Hypertension; ap3 - Immunization history:: Client reports receiving the 2nd dose of the Covid vaccine. - Social history:: Smoking status: Patient denies any tobacco usage or history of. ROS: 12:01 Constitutional: Negative for fever, chills Eyes: Negative for injury, pain, redness, bs3 and discharge. 12:01 All other systems are negative. Exam: 12:01 Constitutional: This is a well developed, well nourished patient who is awake, alert, bs3 and in no acute distress. Head/Face: Normocephalic, atraumatic. Eyes: Pupils equal round and reactive to light, extra-ocular motions intact. Lids and lashes normal. ENT: mmm, no posterior phyarngeal erythema Neck: Trachea midline, no thyromegaly, no neck stiffness Chest/axilla: Normal chest wall appearance and motion. Nontender with no deformity. No lesions are appreciated. Cardiovascular: Regular rate and rhythm with a normal S1 and S2. symmetric pulses in upper extremities Respiratory: Lungs have equal breath sounds bilaterally, clear to auscultation, no respiratory distress Abdomen/GI: Soft, non-tender, no rebound or guarding Skin: Warm, dry with normal turgor. Normal color with no rashes, no lesions, and no evidence of cellulitis. MS/ Extremity: decreased rom of right shoulder/arm, no numbness, tingling, weakess Neuro: Awake and alert, GCS 15, oriented to person, place, time, and situation. Cranial nerves II-XII grossly intact. Motor strength 5/5 in all extremities. Sensory grossly intact. Psych: Awake, alert, with orientation to person, place and time. Behavior, mood, and affect are within normal limits. Vital Signs: 12:07 Pulse 71; Resp 17; Temp 98.0; Pulse Ox 96% ; Weight 111.58 kg; ap3 12:09 BP 159 / 77; ap3 MDM: 11:53 Patient medically screened. bs3 12:01 Differential diagnosis: closed fracture, contusion. Data reviewed: vital signs, nurses bs3 notes. 14:38 Special discussion: X-ray as read by myself consistent with healing fracture of the bs3 proximal humerus. 08/15 12:00 Order name: Shoulder Right (2 View) XRAY bs3 08/15 12:00 Order name: Humerus Right XRAY bs3 08/15 13:20 Order name: RAD; Complete Time: 14:38 EDMS 08/15 13:20 Order name: RAD; Complete Time: 14:38 EDMS Administered Medications: No medications were administered Disposition Summary: 08/15/22 14:40 Discharge Ordered Location: Home bs3 Problem: an acute exacerbation bs3 Symptoms: are resolved bs3 Condition: Stable bs3 Diagnosis - Fracture of upper end of humerus bs3 Followup: bs3 - With: Private Physician - When: As needed - Reason: Re-evaluation by your physician Discharge Instructions: - Discharge Summary Sheet bs3 - Humerus Fracture Treated With Immobilization bs3 Forms: - Medication Reconciliation Form bs3 - Thank You Letter bs3 - Antibiotic Education bs3 - Prescription Opioid Use bs3 Signatures: Dispatcher [employer] EDLinda Thompson RN RN ap3 Kit Rodriguez MD MD bs3
--- NOTE | 2022-08-15 14:41 | ER ---
Nurse's Notes [facility] Name: Sudha Galan Age: 77 yrs Sex: Female : 1945 Arrival Date: 08/15/2022 Time: 11:53 Bed IW10 Private MD: Diagnosis: Fracture of upper end of humerus Presentation: 08/15 12:07 Chief complaint: Patient states: she is having right arm pain that has been bothering ap3 her since she broke it in May. patient denies any trauma to the right arm. Coronavirus screen: At this time, the client does not indicate any symptoms associated with coronavirus-19. Ebola Screen: No symptoms or risks identified at this time. Initial Sepsis Screen: Does the patient meet any 2 criteria? No. Patient's initial sepsis screen is negative. Does the patient have a suspected source of infection? No. Patient's initial sepsis screen is negative. Risk Assessment: Do you want to hurt yourself or someone else? Patient reports no desire to harm self or others. Onset of symptoms is unknown. 12:07 Method Of Arrival: Ambulatory ap3 12:07 Acuity: IGNACIO 4 ap3 Triage Assessment: 12:08 General: Appears in no apparent distress. Behavior is calm, cooperative, appropriate ap3 for age. Pain: Complains of pain in right arm. Neuro: Level of Consciousness is awake, alert, obeys commands, Oriented to person, place, time, situation. Cardiovascular: Patient's skin is warm and dry. Respiratory: Airway is patent Respiratory effort is even, unlabored, Respiratory pattern is regular, symmetrical. Historical: - Allergies: 12:08 Sulfa (Sulfonamide Antibiotics); ap3 - PMHx: 12:08 Arthritis; breast cancer; Hypertension; ap3 - Immunization history:: Client reports receiving the 2nd dose of the Covid vaccine. - Social history:: Smoking status: Patient denies any tobacco usage or history of. Screenin:09 [facility] ED Fall Risk Assessment (Adult) History of falling in the last 3 months, ap3 including since admission No falls in past 3 months (0 pts). Abuse screen: Denies threats or abuse. Nutritional screening: No deficits noted. Tuberculosis screening: No symptoms or risk factors identified. Assessment: 14:30 Reassessment: Called to exam room. No answer. Unable to locate patient. 14:40 Reassessment: called to exam room. No answer. Unable to locate in [facility]. Vital Signs: 12:07 Pulse 71; Resp 17; Temp 98.0; Pulse Ox 96% ; Weight 111.58 kg; ap3 12:09 BP 159 / 77; ap3 ED Course: 11:53 Patient arrived in ED. rg4 11:53 Kit Rodriguez MD is Attending Physician. bs3 12:08 Triage completed. ap3 12:09 Arm band placed on left wrist. ap3 14:51 No provider procedures requiring assistance completed. Patient did not have IV access ss during this emergency room visit. Administered Medications: No medications were administered Medication: 12:09 VIS not applicable for this client. ap3 Outcome: 14:40 Discharge ordered by . bs3 14:51 Discharged to home ambulatory. ss 14:51 Condition: good 14:51 Discharge instructions given to patient, pt left prior to receiving discharge instructions. Called patient who verbalizes understanding of instructions. Instructed on discharge instructions, follow up and referral plans. medication usage, Demonstrated understanding of instructions, follow-up care, medications. 14:52 Patient left the ED. Signatures: Chelle Monge, RN RN Fannie Valadez rg4 Linda Cruz RN RN ap3 Kit Rodriguez MD MD bs3
[2022-08-15 15:45] VITALS: TEMP 98; O2SAT 96
[2022-08-15 15:46] VITALS: BP 159/77
== END 2022-08-15 14:52 | disposition home or self-care (01) ==
LOC: ER 11:48
DX: M79.621 Pain in right upper arm (principal); S42.201S Unspecified fracture of upper end of right humerus, sequela; Z88.2 Allergy status to sulfonamides